=== PATIENT | female | born 1975 | race Caucasian/White ===

== ENCOUNTER 2016-12-03 12:12 | Emergency (ER) | payer MEDICAID ==
[2016-12-03 12:36] VITALS: BP 140/81
[2016-12-03] MEDS ORDERED: KETOROLAC TROMETHAMINE 60 MG/2 ML VIAL IM ONE ×2 (12:50→12:58)
[2016-12-03] MEDS ORDERED: PROMETHAZINE HCL 25 MG/ML AMPUL IM ONE (12:50)
--- NOTE | 2016-12-03 12:51 | ERNOTE ---
Date of Service: 12/03/16 Time Seen by Provider: 12/03/16 12:44 Stated Complaint: SORES ON LIPS, MIGRAINE, NAUSEA Presenting Symptoms:: cough, sore throat Source: patient, RN notes reviewed Exam Limitations: no limitations Allergies/Adverse Reactions: Allergies poison roxann extract Allergy (Verified 04/05/15 14:15) Home Medications: HOME MEDICATIONS Acyclovir 800 mg PO QID #35 tablet 12/03/16 [Last Taken Unknown] - History of Present Ilness Narrative: 41 y/o female ambulatory to the ED for a cough for the past 3 weeks. She has been feeling worse for the past few days and woke up with cold sores and a severe headache today. She also reports chills, sore throat and nausea. She has taken OTC meds for her symptoms this morning. Timing: getting worse Frequency/Possible Cause: Reports: unknown cause Associated Symptoms: Reports: cough, nasal congestion, nasal drainage, lightheadedness, headache, sore throat, muscle aches, fever/chills. Denies: chest pain/soreness, shortness of breath, wheezing, facial pain Prior Treatment: Denies: recently seen Review of Systems - Review of Systems Constitutional: Present: fever, chills, fatigue, malaise EYE: Present: no symptoms reported ENT: Present: See HPI Respiratory: Present: See HPI Cardiology: Present: See HPI Gastrointestinal/Abdominal: Present: nausea. Absent: vomiting, diarrhea, abdominal pain Genitourinary: Absent: other - possible Musculoskeletal: Present: See HPI Skin: Present: lesions. Absent: rash Neurological: Present: See HPI Endocrine: Present: no symptoms reported Hematologic/Lymphatic: Present: no symptoms reported Psych: Present: no symptoms reported - Patient's Past Medical History Patient History - Medical: No pertinent hx Patient History - Cardiac/Respiratory: No pertinent hx Patient History - Cancer: No Hx of Cancer Patient History - Surgical Procedures: T & A LMP (females 10-50): 1 month - Social History Living Situations: alone Psych History: No pertinent hx Smoking Status: Current every day smoker Cigarettes Packs Per Day: 1 Alcohol Use: none Drug Use: none Physical Exam - Physical Exam General Appearance: Present: wd/wn, alert, other - disheveled, appears uncomfortable Eye Exam: Normal inspection: bilateral Ears, Nose, Throat: Present: nasal congestion, pharyngeal erythema. Absent: abnormal TM (R), abnormal TM (L), sinus pain/drainage, pharyngeal swelling Neck: Present: normal inspection, nontender, supple Respiratory: Present: no respiratory distress, normal breath sounds, no accessory muscle use, lungs clear Cardiovascular/Chest: Present: regular rate, rhythm, no murmur Neurological Exam: Present: alert, oriented, normal mood/affect, no motor/ sensory deficits Skin Exam: Present: normal color, warm/dry, skin rash - large inflammed vesicles on upper and lower lips ED Progress - Results and Orders Patient's Lab Results:: I have reviewed the patient's lab results. - Vital Signs Patient's Vital Signs:: I have reviewed the patient's vital signs. Vital Signs: Vital Signs 12/03/16 12:13 Temperature 36 C L Pulse Rate 84 Respiratory 20 Rate Blood Pressure 140/81 O2 Sat by Pulse 97 Oximetry - Progress/Reassessment Chief Complaint: Cough Progress:: Unchanged Progress Note-Subjective: 12/03/16 13:50 Little improvement in headache after Toradol and Phenergan - Nubain ordered. Departure - Departure Clinical Impression: Upper respiratory infection, viral, Cold sore Migraine headache Qualifiers: Migraine type: unspecified Status migrainosus presence: without status migrainosus Intractability: not intractable Qualified Code(s): G43.909 - Migraine, unspecified, not intractable, without status migrainosus Disposition: Home self-care Condition: Stable Instructions: Upper Respiratory Infection, Adult, [id number], Cold Sore, Easy -to-Read, Form - Excuse from Work, School, or Physical Activity Prescriptions: Acyclovir 800 mg PO QID #35 tablet
[2016-12-03] MEDS ORDERED: PROMETHAZINE HCL 25 MG/ML AMPUL ONE (12:58)
--- OUTSIDE RECORDS SUMMARY | 2016-12-03 13:25 | XMS REPORT | Continuity of Care Document ---
:1975 Author Organization [facility] ([facility]) Address [place] [address] Phone [phone] Care Team Providers Name Role Phone Unavailable Primary Care Provider Unavailable Source Comments This disclosure is being made pursuant to the Care Everywhere program, applicable federal and state laws, and may not contain all informaitonavailable regarding this patient.[facility] ([facility]) Active Allergies and Adverse Reactions No Active Allergies Current Medications Not on file Active Problems Not on file Social History Tobacco Use Types Packs/Day Years Used Date Never Assessed Last Filed Vital Signs Vital Sign Reading Time Taken Blood Pressure 131/74 07/05/2006 8:39 AM CDT Pulse 66 07/05/2006 8:39 AM CDT Temperature 36 C (96.8 F) 07/05/2006 8:39 AM CDT Respiratory Rate - - Height 1.6 m (5' 2.99") 07/05/2006 8:39 AM CDT Weight 58.7 kg (129 lb 6.6 oz) 07/05/2006 8:39 AM CDT Body Mass Index 22.93 07/05/2006 8:39 AM CDT Oxygen Saturation - - Plan of Care Health Maintenance Due Date Last Done Comments Hepatitis B Vaccine (1 of 3 - Primary Series) 1975 Tdap Vaccine 11/14/1986 Lipid Disorder Screening 11/14/1993 MMR Vaccine 11/14/1993 Td Vaccine 11/14/1993 Cervical Cancer Screening 11/14/2005 Mammogram 2015 Influenza Vaccine: Seasonal (#1) 04/16/2016 Results from Last 3 Months Not on file
[2016-12-03] MEDS ORDERED: NALBUPHINE HCL 20 MG/ML AMPUL IM ONE (13:49)
[2016-12-03] MEDS ORDERED: NALBUPHINE HCL 20 MG/ML AMPUL ONE (14:02)
== END 2016-12-03 14:00 | disposition home or self-care (01) ==
LOC: ER 12:12
DX: J06.9 Acute upper respiratory infection, unspecified (principal); Z72.0 Tobacco use; B00.1 Herpesviral vesicular dermatitis; G43.909 Migraine, unspecified, not intractable, without status migrainosus

== ENCOUNTER 2017-02-14 19:57 | Emergency (ER) | payer MEDICAID ==
[2017-02-14 20:42] LABS: Hematocrit 40.1 % (37.0-47.0); Hemoglobin 13.6 gm/dL (12.5-16.0); Mean Corpuscular Hemoglobin 29.5 pg (27-31); Mean Corpuscular Hgb Conc 33.9 g/dl (32-36); Mean Platelet Volume 11.6 fl (6.0-9.5); Neutrophil # 10.5 K/mm3 (1.3-6.0); Neutrophil % 81.2 % (42-75.0); Platelet Count 185 K/mm3 (150-450); Red Blood Count 4.61 M/mm3 (4.2-5.4); Red Cell Distribution Width 13.6 % (11.5-14.0); White Blood Count 12.9 K/mm3 (4.0-10.5)
[2017-02-14 20:57] LABS: Albumin * 3.7 gm/dl (3.4-5.0); Anion Gap 16.4 mmol/L (6.8-13.8); BUN/Creatinine Ratio 6.8 (9.0-21.6); Bilirubin, Total 0.4 mg/dL (0.0-1.1); Ca. Corrected For Albumin 9.7 mg/dL (8.4-10.2); Calcium * 9.8 mg/dL (7.9-10.9); Carbon Dioxide 23.9 mmol/L (24-32.6); Potassium 3.3 mmol/L (3.4-4.6); Total Protein 8.5 gm/dL (6.2-8.2)
--- NOTE | 2017-02-14 20:58 | ERNOTE ---
Abdominal HPI - Narrative Date of Service: 02/14/17 - General Chief Complaint: Abdominal Pain Time Seen by Provider: 02/14/17 20:57 Source: patient Exam Limitations: no limitations - Immun/Allergies/Home Medications Immunizatons: IMMUNIZATION HX Immunizations Up to Date Yes History of Influenza Vaccine No Hx Pneumococcal Vaccination No Allergies/Adverse Reactions: Allergies poison roxann extract Allergy (Verified 04/05/15 14:15) Home Medications: HOME MEDICATIONS Meloxicam [Mobic] 15 mg PO DAILY #30 tab 02/15/17 [Last Taken Unknown] Ondansetron [Zofran Odt] 4 mg PO Q6H PRN #7 tab 02/15/17 [Last Taken Unknown] Phenazopyridine HCl [Pyridium] 100 mg PO TID #6 tab 02/15/17 [Last Taken Unknown ] Sulfamethoxazole/Trimethoprim [Bactrim Ds] 1 tab PO BID #20 tab 02/15/17 [Last Taken Unknown] - History of Present Illness Narrative: PT WITH LOWER ABDOMINAL/FLANK PAIN. C/O OF FREQUENCY. SAYS IT STARTED ON LEFT FLANK 2 WEEKS AGO AND IS WORSE TODAY AND IS MOVING TO GROIN AND ALSO IS NOW ON RIGHT FLANK AND REPORTS LOOSE STOOLS YESTERDAY. NO VOMITING. SAYS SHE THINKS SHE HAD A FEVER TODAY. NO ONE ELSE AT HOME IS ILL. DENIES MEDS OR ALLERGIES TO MEDS. Review of Systems - Review of Systems Constitutional: Present: See HPI EYE: Present: no symptoms reported ENT: Present: no symptoms reported Respiratory: Present: no symptoms reported Cardiology: Present: no symptoms reported Gastrointestinal/Abdominal: Present: See HPI, diarrhea - YESTERDAY , abdominal pain Genitourinary: Present: See HPI, frequency, other - FLANK PAINS. Musculoskeletal: Present: no symptoms reported Skin: Present: no symptoms reported Neurological: Present: no symptoms reported Endocrine: Present: no symptoms reported Hematologic/Lymphatic: Present: no symptoms reported Psych: Present: no symptoms reported All Other Systems: All systems neg except as marked - Patient's Past Medical History Patient History - Medical: No pertinent hx, Other - HX OF IV DRUG ABUSE , HX OF HEP C, NOT ON MEDS. Patient History - Cardiac/Respiratory: No pertinent hx Patient History - Cancer: No Hx of Cancer Patient History - Surgical Procedures: Tubal Ligation, T & A, Orthopedic Patient History - Other: None LMP (females 10-50): 3 weeks - Social History Living Situations: home Abuse History: No History of abuse Psych History: No pertinent hx Smoking Status: Current every day smoker Patient requests Smoking Cessation Consult: No Initiate information on Smoking Cessation: No Alcohol Use: none Drug Use: none - Immunizations Immunizations Up to Date: Yes Hx Pneumococcal Vaccination: No History of Influenza Vaccine: No Physical Exam - Physical Exam General Appearance: Present: wd/wn, alert, moderate distress Respiratory: Present: no respiratory distress, normal breath sounds, no accessory muscle use, chest nontender, lungs clear Cardiovascular/Chest: Present: regular rate, rhythm, no murmur, normal peripheral pulses Gastrointestinal/Abdominal: Present: normal bowel sounds, nondistended, soft, no organomegaly, tenderness - MILD SUPRAPUBIC TENDERNESS. NO GUARDING OR REBOUND. Back Exam: Present: normal inspection, normal range of motion, no vertebral tenderness, CVA tenderness (R), CVA tenderness (L) Neurological Exam: Present: alert, oriented Skin Exam: Present: normal color ED Progress - Results and Orders Patient's Lab Results:: I have reviewed the patient's lab results. Results and Orders: MILD ELEVATED WBC = 12.9 , K+ = 3.1, AND GLUC = 140. HER URINE IS + FOR UTI SIGNS AND UDS= + FOR METH AND THC. URINE CULT. IS PENDING. - Vital Signs Vital Signs: Vital Signs 02/14/17 20:01 Temperature 37.6 C H Pulse Rate 96 Respiratory 16 Rate Blood Pressure 142/92 O2 Sat by Pulse 100 Oximetry - CT/Ultrasound CT/Ultrasound Narrative: CT ABD / PEL WITH IV CONTRAST = MILD FECAL RETENTION IN RIGHT JUAN MIGUEL-COLON WITH NO RENAL OR OTHER ABNORMALITIES NOTED PER ARGUS. - Progress/Reassessment Chief Complaint: Abdominal Pain Progress:: Improved - Transfer of Care Expected Disposition: Discharge Departure - Departure Clinical Impression: Bilateral flank pain, Suprapubic pain Disposition: Home Follow Up Needed Condition: Fair Instructions: Stimulant Use Disorder-Methamphetamines, Urinary Tract Infection , Adult, [id number] Prescriptions: Meloxicam [Mobic] 15 mg PO DAILY #30 tab Ondansetron [Zofran Odt] 4 mg PO Q6H PRN #7 tab PRN Reason: Vomiting Phenazopyridine HCl [Pyridium] 100 mg PO TID #6 tab Sulfamethoxazole/Trimethoprim [Bactrim Ds] 1 tab PO BID #20 tab
[2017-02-14] MEDS ORDERED: NORMAL SALINE 1,000 ML IV ONE (21:11)
[2017-02-14] MEDS ORDERED: KETOROLAC TROMETHAMINE 30 MG/ML VIAL IV ONE (21:11)
[2017-02-14] MEDS ORDERED: TAMSULOSIN HCL 0.4 MG CAP.SR.24H PO ONE ×2 (21:11→21:43)
[2017-02-14] MEDS ORDERED: KETOROLAC TROMETHAMINE 30 MG/ML VIAL ONE (21:42)
[2017-02-14 22:22] LABS: Urine Bilirubin Negative (NEGATIVE); Urine Blood 25 /ul (NEGATIVE); Urine Ketone Negative (NEGATIVE); Urine Nitrite Negative (NEGATIVE); Urine Protein Negative (NEGATIVE); Urine Specific Gravity <=1.005 SP.GR. (1.005-1.010); Urine Urobilinogen Normal (NORMAL); Urine pH 7.5 pH (5.0-7.0)
[2017-02-14 22:32] LABS: Urine Appearance Cloudy; Urine Color Yellow
[2017-02-14 22:33] LABS: Cocaine Ur Negative (NEGATIVE); Urine Bacteria 3+; Urine Barbiturate Negative (NEGATIVE); Urine Benzodiazepines Negative (NEGATIVE); Urine Mucus Few - 1+; Urine Opiates Negative (NEGATIVE); Urine PCP Negative (NEGATIVE); Urine RBC 0-5 /hpf (0-5); Urine WBC >50 /hpf (0-5)
[2017-02-14 22:35] LABS: Urine THC Positive (NEGATIVE)
--- OUTSIDE RECORDS SUMMARY | 2017-02-15 00:08 | XMS REPORT | Continuity of Care Document ---
:1975 Author Organization [facility] ([facility]) [place] [address] Phone [phone] Care Team Providers Name Role Phone Unavailable Primary Care Provider Unavailable Source Comments This disclosure is being made pursuant to the Care Everywhere program, applicable federal and state laws, and may not contain all informaitonavailable regarding this patient.[facility] ([facility]) Active Allergies and Adverse Reactions No Active [...]
[2017-02-15] MEDS ORDERED: ONDANSETRON HCL/PF 2 MG/ML VIAL IV ONE (00:09)
[2017-02-15] MEDS ORDERED: SULFAMETHOXAZOLE/TRIMETHOPRIM 1 TAB TABLET PO ONE (00:10)
[2017-02-15] MEDS ORDERED: PHENAZOPYRIDINE HCL 100 MG TABLET PO ONE (00:11)
[2017-02-15] MEDS ORDERED: ONDANSETRON HCL/PF 2 MG/ML VIAL ONE (00:14)
[2017-02-15] MEDS ORDERED: SULFAMETHOXAZOLE/TRIMETHOPRIM 1 TAB TABLET ONE (00:14)
[2017-02-15] MEDS ORDERED: PHENAZOPYRIDINE HCL 100 MG TABLET ONE (00:14)
[2017-02-15 02:23] VITALS: BP 136/70
== END 2017-02-15 00:25 | disposition home or self-care (01) ==
LOC: ER 19:57
DX: R10.9 Unspecified abdominal pain (principal); R10.2 Pelvic and perineal pain; F17.200 Nicotine dependence, unspecified, uncomplicated
CPT/HCPCS: 36415; 74176; 80053; 80307; 81001; 82150; 83690; 84703; 85025; 87077; 87086; 87186; 96374; 96375; 99284; J2405

== ENCOUNTER 2017-04-23 19:06 | Emergency (ER) | payer SELFPAY ==
[2017-04-23 19:26] LABS: Urine Bilirubin Negative (NEGATIVE); Urine Blood 250 /ul (NEGATIVE); Urine Ketone Negative (NEGATIVE); Urine Protein 100 mg/dL (NEGATIVE); Urine Urobilinogen Normal (NORMAL); Urine pH 6.5 pH (5.0-7.0)
[2017-04-23 19:35] LABS: Urine Appearance Cloudy; Urine Color Yellow; Urine Nitrite Positive (NEGATIVE); Urine WBC 25-50 /hpf (0-5)
[2017-04-23 19:36] LABS: Urine Bacteria 4+; Urine RBC 25-50 /hpf (0-5)
--- NOTE | 2017-04-23 19:42 | ERNOTE ---
ER Female HPI Stated Complaint: RT SIDE PAIN Time Seen by Provider: 04/23/17 19:12 Source: patient Exam Limitations: no limitations Immunizations: IMMUNIZATION HX Immunizations Up to Date Yes History of Influenza Vaccine No Hx Pneumococcal Vaccination No Allergies/Adverse Reactions: Allergies poison roxann extract Allergy (Verified 04/23/17 19:14) Home Medications: HOME MEDICATIONS Ibuprofen [Motrin] 800 mg PO TID PRN #30 tablet 04/23/17 [Last Taken Unknown] Sulfamethoxazole/Trimethoprim [Bactrim Ds] 1 tab PO BID #28 tablet 04/23/17 [ Last Taken Unknown] - History of Present Illness Narrative: Patient's symptoms started 3 days ago with dysuria. Patient did not seek medical attention at that time. Since then the dysuria has gotten worse and now the patient has right-sided flank pain. The flank pain is continuous throbbing and worsening in nature. She denies any fevers or chills. She denies being . Review of Systems - Review of Systems Constitutional: Present: malaise EYE: Present: no symptoms reported ENT: Present: no symptoms reported Respiratory: Present: no symptoms reported Cardiology: Present: no symptoms reported Gastrointestinal/Abdominal: Present: See HPI Genitourinary: Present: See HPI - Patient's Past Medical History Patient History - Medical: No pertinent hx, Other Patient History - Cardiac/Respiratory: No pertinent hx Patient History - Cancer: No Hx of Cancer Patient History - Surgical Procedures: Tubal Ligation, T & A, Orthopedic Patient History - Other: None LMP (females 10-50): 3 weeks - Social History Living Situations: home Abuse History: No History of abuse Psych History: No pertinent hx Smoking Status: Current every day smoker Have you smoked in the past 12 months: Yes Do you dip or chew tobacco: No Patient requests Smoking Cessation Consult: No Initiate information on Smoking Cessation: No Alcohol Use: none Drug Use: none - Immunizations Immunizations Up to Date: Yes Hx Pneumococcal Vaccination: No History of Influenza Vaccine: No Physical Exam - Physical Exam General Appearance: Present: wd/wn, mild distress Respiratory: Present: no respiratory distress, normal breath sounds, no accessory muscle use, chest nontender, lungs clear Cardiovascular/Chest: Present: regular rate, rhythm, no murmur, normal peripheral pulses Gastrointestinal/Abdominal: Present: normal bowel sounds, nontender Back Exam: Present: normal inspection, other - patient has right-sided CVA tenderness and aching. It is not colicky in nature it is throbbing and its continuous. ED Progress - Results and Orders Patient's Lab Results:: I have reviewed the patient's lab results. - Vital Signs Patient's Vital Signs:: I have reviewed the patient's vital signs. Vital Signs: Vital Signs 04/23/17 19:08 Temperature 37.6 C H Pulse Rate 104 H Respiratory 18 Rate Blood Pressure 137/99 O2 Sat by Pulse 100 Oximetry - Progress/Reassessment Chief Complaint: Urinary Tract Problems Plan - Plan Plan: Patient's test results and her examination is significant for right-sided pyelonephritis and she will be treated as such. Departure Clinical Impression: Pyelonephritis - Departure Disposition: Home self-care Condition: Good Instructions: Flank Pain, [id number], Pyelonephritis, Adult Additional Instructions: U absolutely must follow-up with her primary care doctor in 3-4 days for a follow-up of your condition. Prescriptions: Ibuprofen [Motrin] 800 mg PO TID PRN #30 tablet PRN Reason: Pain Sulfamethoxazole/Trimethoprim [Bactrim Ds] 1 tab PO BID #28 tablet
[2017-04-23] MEDS ORDERED: NORMAL SALINE 1,000 ML IV ONE (19:44)
[2017-04-23] MEDS ORDERED: HYDROmorphone HCL 1 MG/ML DISP.SYRIN ONE ×3 (19:45→20:13)
[2017-04-23] MEDS ORDERED: LEVOFLOXACIN/D5W 500 MG/100 ML BAG IV SCH (19:45)
[2017-04-23] MEDS ORDERED: ONDANSETRON HCL/PF 2 MG/ML VIAL IV ONE (19:45)
[2017-04-23] MEDS ORDERED: HYDROmorphone HCL 1 MG/ML DISP.SYRIN IV ONE (19:45)
[2017-04-23] MEDS ORDERED: ONDANSETRON HCL/PF 2 MG/ML VIAL ONE (19:45)
[2017-04-23 21:50] VITALS: BP 113/81
== END 2017-04-23 22:14 | disposition home or self-care (01) ==
LOC: ER 19:06
DX: N12 Tubulo-interstitial nephritis, not specified as acute or chronic (principal); F17.200 Nicotine dependence, unspecified, uncomplicated
CPT/HCPCS: 81001; 87077; 87086; 87186; 96365; 96375; 99284; J2405

== ENCOUNTER 2017-04-24 13:08 | Emergency (ER) | payer SELFPAY ==
[2017-04-24] MEDS ORDERED: KETOROLAC TROMETHAMINE 60 MG/2 ML VIAL IM ONE ×2 (14:01→14:04)
--- NOTE | 2017-04-24 14:04 | ERNOTE ---
ER Female HPI Date of Service: 04/24/17 Stated Complaint: abdominal pain Time Seen by Provider: 04/24/17 13:46 Immunizations: IMMUNIZATION HX Immunizations Up to Date Yes History of Influenza Vaccine No Hx Pneumococcal Vaccination No Allergies/Adverse Reactions: Allergies poison roxann extract Allergy (Verified 04/24/17 13:15) Home Medications: HOME MEDICATIONS Ibuprofen [Motrin] 800 mg PO TID PRN #30 tablet 04/23/17 [Last Taken Unknown] Sulfamethoxazole/Trimethoprim [Bactrim Ds] 1 tab PO BID #28 tablet 04/23/17 [ Last Taken Unknown] - History of Present Illness Narrative: Pt. comes in with c/o R flank pain since yesterday accompanied by dysuria. Pt. was seen here yesterday and diagnosed with pyelonephritis and was prescribed antibiotics and was found to not have systemic illness. Pt. also received first dose of abx here and went home after 2300 last night. Pt. states that she had pain when she woke up this morning so she was not able to go to the pharmacy and pick out hand her medications so she came here instead. Review of Systems - Review of Systems Constitutional: Present: recent illness. Absent: fever, chills, weakness, fatigue, malaise EYE: Present: no symptoms reported ENT: Present: no symptoms reported Respiratory: Present: no symptoms reported. Absent: shortness of breath, cough , wheezing Cardiology: Present: no symptoms reported Gastrointestinal/Abdominal: Present: abdominal pain - RLQ. Absent: nausea, vomiting, diarrhea Genitourinary: Present: pain - R flank, dysuria. Absent: decreased urinary output Musculoskeletal: Present: back pain - R flank Skin: Present: no symptoms reported. Absent: rash, change in color Neurological: Present: no symptoms reported. Absent: headache, dizziness/light- headedness, numbness, tingling All Other Systems: All systems neg except as marked - Patient's Past Medical History Patient History - Medical: No pertinent hx, Other Patient History - Cardiac/Respiratory: No pertinent hx Patient History - Cancer: No Hx of Cancer Patient History - Surgical Procedures: Tubal Ligation, T & A, Orthopedic Patient History - Other: None - Social History Living Situations: home Abuse History: No History of abuse Psych History: No pertinent hx Alcohol Use: none Drug Use: none - Immunizations Immunizations Up to Date: Yes Hx Pneumococcal Vaccination: No History of Influenza Vaccine: No Physical Exam - Physical Exam General Appearance: Present: wd/wn, alert, no apparent distress Head Exam: Present: normal inspection, no evidence of injury Eye Exam: Normal inspection: bilateral, PERRL: bilateral, EOMI: bilateral Ears, Nose, Throat: Present: normal ENT inspection, normal pharynx Neck: Present: normal inspection, nontender, supple, full range of motion. Absent: lymphadenopathy (R), lymphadenopathy (L) Respiratory: Present: no respiratory distress, normal breath sounds, no accessory muscle use, chest nontender, lungs clear Cardiovascular/Chest: Present: regular rate, rhythm, no murmur, normal peripheral pulses Gastrointestinal/Abdominal: Present: normal bowel sounds, nontender, nondistended, soft, no organomegaly Back Exam: Present: normal inspection, normal range of motion, CVA tenderness (R ) Extremity Exam: Present: normal inspection, non-tender, normal range of motion, no edema Neurological Exam: Present: alert, oriented, normal mood/affect, no motor/ sensory deficits Skin Exam: Present: normal color, warm/dry. Absent: pallor, skin rash ED Progress - Date and Time Seen: Date and Time: 04/24/17 13:56 Received notes from visit last night and as pt. is not having fever and has not taken her prescribed medications or any OTC medications feel that pt. needs no further treatment but do agree with currently ordered treatment and feel that pt. just needs to go pick out hand medications but will ordered pain medications here for pt. before discharge although pt. states that nshe knows her medications wont work so she did not pick them up. - Vital Signs Patient's Vital Signs:: I have reviewed the patient's vital signs. Vital Signs: Vital Signs 04/24/17 13:13 Temperature 36.7 C Pulse Rate 90 Respiratory 14 Rate Blood Pressure 136/92 O2 Sat by Pulse 98 Oximetry - Progress/Reassessment Chief Complaint: Genitourinary Problem Departure Clinical Impression: Pyelonephritis - Departure Disposition: Home self-care Condition: Good Instructions: Pyelonephritis, Adult, [id number] Additional Instructions: Please pick out hand medications from pharmacy and take as directed. Please follow up with primary provider in 1-2 days.
[2017-04-24 14:12] VITALS: BP 125/71
== END 2017-04-24 14:26 | disposition home or self-care (01) ==
LOC: ER 13:08
DX: N12 Tubulo-interstitial nephritis, not specified as acute or chronic (principal)